=== PATIENT | female | born 1995 | race American Indian/Alaskan Native ===

== ENCOUNTER 2016-05-31 10:36 | Emergency (ER) | payer SELFPAY ==
--- NOTE | 2016-05-31 14:20 | Emergency Department Report ---
ED Female HPI - General Chief complaint: Urogenital-Female Stated complaint: 14 WKS ,CRAMING,VAGINAL D/C Time Seen by Provider: 05/31/16 13:40 Source: patient Mode of arrival: Ambulatory Limitations: No Limitations - History of Present Illness Initial comments: 21-year-old female 1 miscarriage currently approximately 14 weeks by LMP and ultrasound presents with complaint of one week of vaginal discharge and mild vaginal itching. Patient states that she had one episode of cramping earlier this week but denies any vaginal bleeding and no current cramping. 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 States that she has had yellowish whitish greenish discharge from vagina within the last week. States that it is slightly itchy. Denies any vaginal bleeding whatsoever no nausea no vomiting no fever no chills. Complains of mild dysuria and no increased urinary frequency. MD Complaint: vaginal discharge Onset/Timin -: week(s) Location: labia Severity: mild Severity scale (0 -10): 5 Consistency: constant Improves with: none Worsens with: none Are you Now?: Yes - Related Data Sexually active: Yes : 2 Para: 0 Previous Rx's Medication Instructions Recorded Last Taken Type Clotrimazole [Cckt-Czxbliwq-4] 1 applicator [facility] #1 cream.appl 05/31/16 Unknown Rx Nitrofurantoin [place]/M-Cryst 100 mg PO Q12HR #14 capsule 05/31/16 Unknown Rx [Macrobid CAP] metroNIDAZOLE [Flagyl TAB] 500 mg PO Q12HR #14 tab 05/31/16 Unknown Rx Allergies Allergy/AdvReac Type Severity Reaction Status Date / Time No Known Allergies Allergy Unverified 05/31/16 11:06 ED Review of Systems ROS: Stated complaint: 14 WKS ,CRAMING,VAGINAL D/C Other details as noted in HPI Constitutional: denies: chills, fever Eyes: denies: eye pain, eye discharge, vision change ENT: denies: ear pain, throat pain Respiratory: denies: cough, shortness of breath, wheezing Cardiovascular: denies: chest pain, palpitations Endocrine: no symptoms reported Gastrointestinal: denies: abdominal pain, nausea, diarrhea Genitourinary: dysuria, discharge. denies: urgency Musculoskeletal: denies: back pain, joint swelling, arthralgia Skin: denies: rash, lesions Neurological: denies: headache, weakness, paresthesias Psychiatric: denies: anxiety, depression Hematological/Lymphatic: denies: easy bleeding, easy bruising ED Past Medical Hx - Past Medical History Previous Medical History?: Yes - Surgical History Past Surgical History?: No - Social History Smoking Status: Never Smoker Substance Use Type: Non Opiate Pain - Medications Home Medications: Home Medications Medication Instructions Recorded Confirmed Last Taken Type Clotrimazole [Ulxk-Qcshcucf-4] 1 applicator [facility] #1 cream.appl 05/31/16 Unknown Rx Nitrofurantoin [place]/M-Cryst 100 mg PO Q12HR #14 capsule 05/31/16 Unknown Rx [Macrobid CAP] metroNIDAZOLE [Flagyl TAB] 500 mg PO Q12HR #14 tab 05/31/16 Unknown Rx ED Physical Exam - General Limitations: No Limitations General appearance: alert, in no apparent distress - Head Head exam: Present: atraumatic, normocephalic - Eye Eye exam: Present: normal appearance, PERRL, EOMI - ENT ENT exam: Present: mucous membranes moist - Neck Neck exam: Present: normal inspection - Respiratory Respiratory exam: Present: normal lung sounds bilaterally. Absent: respiratory distress - Cardiovascular Cardiovascular Exam: Present: regular rate, normal rhythm. Absent: systolic murmur, diastolic murmur, rubs, gallop - GI/Abdominal GI/Abdominal exam: Present: soft, normal bowel sounds - Rectal Rectal exam: Present: normal inspection - External exam: Present: normal external exam Speculum exam: Present: vaginal discharge (yellowish whitish vaginal discharge) Bi-manual exam: Present: normal bi-manual exam - Extremities Exam Extremities exam: Present: normal inspection, full ROM - Back Exam Back exam: Present: normal inspection - Neurological Exam Neurological exam: Present: alert, oriented X3, CN II-XII intact, normal gait - Psychiatric Psychiatric exam: Present: normal affect, normal mood - Skin Skin exam: Present: warm, dry, intact, normal color. Absent: rash ED Course Vital Signs 05/31/16 11:06 Temperature 99.3 F Pulse Rate 64 Respiratory 15 Rate Blood Pressure 118/75 O2 Sat by Pulse 100 Oximetry ED Medical Decision Making - Medical Decision Making A/P: Bacterial vaginosis, yeast infection vaginal candidiasis; UTI 1-Macrobid twice a day 7 days, urine culture sent 2-Flagyl 500 mg twice a day 7 days, vaginal clotrimazole 3-we'll give patient follow up with [facility] REPORT DEVELOPER Critical care attestation.: If time is entered above; I have spent that time in minutes in the direct care of this critically ill patient, excluding procedure time. ED Disposition Clinical Impression: Vaginal candidiasis, Bacterial vaginosis UTI (urinary tract infection) Qualifiers: Urinary tract infection type: urethritis Qualified Code(s): N34.2 - Other urethritis Disposition: DISCHARGED TO HOME OR SELFCARE Is pt being admited?: No Does the pt Need Aspirin: No Condition: Stable Instructions: Bacterial Vaginosis (ED), Urinary Tract Infection in Women (ED), Vulvovaginal Candidiasis (ED) Prescriptions: Clotrimazole [Grwm-Cvwulidv-4] 1 applicator [facility] Q[facility] #1 cream.appl metroNIDAZOLE [Flagyl TAB] 500 mg PO Q12HR #14 tab Nitrofurantoin [place]/M-Cryst [Macrobid CAP] 100 mg PO Q12HR #14 capsule Referrals: LARRY MACK MD [Staff Physician] - 3-5 Days [facility] [Provider Group] - 3-5 Days Forms: STI Treatment and Prevention, Work/School Release Form(ED) Time of Disposition: 15:15
[2016-05-31 14:41] LABS: Bacteria,Urine 2+ /HPF (Negative); Bilirubin,Urine NEG (Negative); Blood,Urine SM (Negative); Ketones,Urine 20 mg/dL (Negative); Leukocyte Esterase,Urine LG (Negative); Mucus,Urine 3+ /HPF; Nitrite,Urine NEG (Negative); Urobilinogen,Urine < 2.0 mg/dL (<2.0)
[2016-05-31] MEDS ORDERED: ZITHROMAX PO ONE (15:19)
[2016-05-31] MEDS ORDERED: XYLOCAINE 1% MPF 5 mL INFILTRATI ONE (15:19)
[2016-05-31] MEDS ORDERED: ROCEPHIN IM ONE (15:19)
[2016-05-31 15:48] VITALS: BP 116/74
== END 2016-05-31 15:16 | disposition home or self-care (01) ==
LOC: ED 10:36
DX: O23.42 Unspecified infection of urinary tract in pregnancy, second trimester (principal); O23.592 Infection of other part of genital tract in pregnancy, second trimester; N76.0 Acute vaginitis; O98.812 Other maternal infectious and parasitic diseases complicating pregnancy, second trimester; B37.3 Candidiasis of vulva and vagina; Z3A.14 14 weeks gestation of pregnancy
CPT/HCPCS: 81001; 81025; 87086; 87210; 87591; 96372; 99284; J0696

== ENCOUNTER 2016-06-23 18:05 | Emergency (ER) | payer SELFPAY ==
[2016-06-23 18:53] VITALS: BP 110/72
[2016-06-23 19:22] LABS: Basophils % (Auto) 0.3 % (0.0-1.8); Eosinophils % (Auto) 1.3 % (0.0-4.3); Hematocrit 36.6 % (30.3-42.9); Hemoglobin 12.1 gm/dl (10.1-14.3); Mean Corpuscular HGB Conc 33 % (30-34); Mean Corpuscular Volume 78 fl (79-97); Platelet Count 198 K/mm3 (140-440); Red Blood Count 4.69 M/mm3 (3.65-5.03); Red Cell Distribution Width 16.1 % (13.2-15.2); White Blood Count 8.8 K/mm3 (4.5-11.0)
[2016-06-23 19:40] LABS: Mean Corpuscular Hemoglobin 26 pg (28-32)
[2016-06-23 20:01] LABS: Anion Gap 17 mmol/L; Blood Urea Nitrogen 8 mg/dL (7-17); Calcium 9.1 mg/dL (8.4-10.2); Carbon Dioxide 23 mmol/L (22-30); Chloride 100.4 mmol/L (98-107); Glucose 86 mg/dL (65-100); Potassium 4.2 mmol/L (3.6-5.0); Sodium 136 mmol/L (137-145)
[2016-06-23 21:11] LABS: Bilirubin,Urine NEG (Negative); Blood,Urine NEG (Negative); Ketones,Urine NEG (Negative); Leukocyte Esterase,Urine SM (Negative); Mucus,Urine 2+ /HPF; Nitrite,Urine NEG (Negative)
== END 2016-06-23 21:30 | disposition left against medical advice (07) ==
LOC: ED 18:05
DX: O26.892 Other specified pregnancy related conditions, second trimester (principal); R42 Dizziness and giddiness; Z3A.16 16 weeks gestation of pregnancy; Z53.21 Procedure and treatment not carried out due to patient leaving prior to being seen by health care provider
CPT/HCPCS: 36415; 80048; 81001; 85025

== ENCOUNTER 2016-11-10 23:46 | Outpatient (CLI) | payer SELFPAY ==
[2016-11-11 00:04] VITALS: BP 117/74
[2016-11-11] MEDS ORDERED: VISTARIL PO ONE (00:32)
== END 2016-11-11 01:16 | disposition home or self-care (01) ==
LOC: TRG 23:46
PROVIDERS: ATTEND Obstetrics & Gynecology
DX: O47.1 False labor at or after 37 completed weeks of gestation (principal); Z3A.38 38 weeks gestation of pregnancy
CPT/HCPCS: Q0177

== ENCOUNTER 2016-11-11 10:23 | Inpatient (IN) | payer OTHER ==
[2016-11-11] MEDS ORDERED: MINERAL OIL PO PRN (11:18)
[2016-11-11] MEDS ORDERED: BRETHINE SUB-Q PRN (11:18)
[2016-11-11] MEDS ORDERED: PHENERGAN PO PRN ×2 (11:18→13:34)
[2016-11-11] MEDS ORDERED: SUBLIMAZE IV PRN (11:18)
[2016-11-11] MEDS ORDERED: XYLOCAINE 2% INFILTRATI ONE (11:18)
[2016-11-11] MEDS ORDERED: ePHEDrine SULFATE IV PRN (11:18)
[2016-11-11] MEDS ORDERED: ZOFRAN IV PRN ×2 (11:18→13:34)
[2016-11-11] MEDS ORDERED: STADOL IV PRN (11:18)
[2016-11-11] MEDS ORDERED: BRETHINE IVP PRN (11:18)
[2016-11-11] MEDS ORDERED: POLYCILLIN/NS 2 GM/100 ML 2 GM/100 ML BAG IV ONE (11:18)
[2016-11-11] MEDS ORDERED: NARCAN 0.4 MG/1 ML IV PRN (11:18)
--- NOTE | 2016-11-11 11:25 | History and Physical Report ---
History of Present Illness Date of examination: 11/11/16 Date of admission: 11/11/16 10:40 Chief complaint: labor History of present illness: Pt is a 21yo BF EDC 11/21/16; EGA 38 4/7 weeks presents to L&D complaining of RUC's q 3-4 mins. She received care at [facility], however records are not available. Pt states course has been unremarkable. labs are available but GBS is unknown. Past History Past Medical History: no pertinent history Past Surgical History: no surgical history Social history: no significant social history, single - Obstetrical History Expected Date of Delivery: 11/21/16 Actual Gestation: 38 Week(s) 4 Day(s) Medications and Allergies Allergies Allergy/AdvReac Type Severity Reaction Status Date / Time No Known Allergies Allergy Verified 06/23/16 18:53 Home Medications Medication Instructions Recorded Confirmed Last Taken Type Exh229/FA/Omega3/Dha/Fish Oil 1 each PO QDAY 06/23/16 11/11/16 11/09/16 17:00 History [ Gummies] Review of Systems All systems: negative - Vital Signs Vital signs: Vital Signs Pulse Pulse Ox 60 99 11/11/16 10:29 11/11/16 10:29 Temp Pulse Resp BP Pulse Ox 108 H 99 11/11/16 10:36 11/11/16 10:36 - Physical Exam Breasts: Positive: deferred Cardiovascular: Regular rate Lungs: Positive: Clear to auscultation Abdomen: Positive: normal appearance Genitourinary (Female): Positive: normal external genitalia Vagina: Positive: normal moisture Uterus: Positive: enlarged Extremities: Positive: normal - Obstetrical FHR: category 1 Uterine Contraction Monitor Mode: External Cervical Dilatation: 5.5 Cervical Effacement Percentage: 90 station: -1 Uterine Contraction Pattern: Regular Uterine Tone Measurement Phase: Contraction Uterine Contraction Intensity: Moderate Results Result Diagrams: 11/11/16 11:17 All other labs normal. Assessment and Plan - Patient Problems (1) 38 weeks gestation of Onset Date: 11/11/16 Current Visit: Yes Status: Acute Plan to address problem: A: IUP @ 38 4/7 weeks in labor Unknown GBS P: Admit to L&D for expectant vaginal delivery IV Ampicillin Obtain Medical records (2) Active labor at term Onset Date: 11/11/16 Current Visit: Yes Status: Acute
[2016-11-11 11:41] LABS: Hematocrit 32.6 % (30.3-42.9); Mean Corpuscular HGB Conc 31 % (30-34); Platelet Count 229 K/mm3 (140-440); Red Blood Count 4.89 M/mm3 (3.65-5.03); Red Cell Distribution Width 17.3 % (13.2-15.2)
[2016-11-11 11:43] LABS: Mean Corpuscular Hemoglobin 20 pg (28-32); Mean Corpuscular Volume 67 fl (79-97)
[2016-11-11] MEDS ORDERED: PITOCin/NS 30 UNIT/500ML 30 UNITS/500 ML BAG IV SCH ×2 (12:00)
[2016-11-11] MEDS ORDERED: LACTATED RINGERS 1,000 ML IV SCH (12:00)
[2016-11-11] MEDS ORDERED: PITOCin/NS 20 UNIT/1000ML DRIP 20 UNITS/1,000 ML BAG IV SCH ×2 (12:00→14:00)
--- NOTE | 2016-11-11 13:33 | Procedure Note ---
OB Delivery Note - Delivery Date of Delivery: 11/11/16 Surgeon: SELENA MACK Estimated blood loss: 100cc - Vaginal Delivery presentation: vertex Delivery position: OA Intrapartum events: precipitous labor- <3hr Delivery induction: none Delivery augmentation: rupture of membranes Delivery monitor: external FHT, external uterine Route of delivery: Delivery placenta: spontaneous Delivery cord: 3 umbilical vessels Episiotomy: none Delivery laceration: none Anesthesia: none Delivery comments: delivered OA and placed on Mom's chest for [id number] bonding and delayed cord clamping - A at 1 minute: 9 at 5 minutes: 9 Infant Gender: Male (3198gms)
[2016-11-11] MEDS ORDERED: TUCKS PAD TP PRN (13:34)
[2016-11-11] MEDS ORDERED: TYLENOL PO PRN (13:34)
[2016-11-11] MEDS ORDERED: DULCOLAX PR PRN (13:34)
[2016-11-11] MEDS ORDERED: BENADRYL PO PRN (13:34)
[2016-11-11] MEDS ORDERED: PHENERGAN PR PRN (13:34)
[2016-11-11] MEDS ORDERED: LANSINOH TP PRN (13:34)
[2016-11-11] MEDS ORDERED: NORCO 5/325 PO PRN (13:34)
[2016-11-11] MEDS ORDERED: MILK OF MAGNESIA PO PRN (13:34)
[2016-11-11] MEDS ORDERED: SODIUM CHLORIDE FLUSH SYRINGE 10 ML IV NR (14:00)
[2016-11-11] MEDS: MOTRIN PO SCH ×2 (14:55→21:02)
[2016-11-11] MEDS ORDERED: POLYCILLIN/NS 1 GM/50 ML 1 GM/50 ML BAG IV SCH (15:21)
[2016-11-11] MEDS ORDERED: FLAGYL PO ONE (17:00)
[2016-11-11] MEDS: FEOSOL PO SCH (21:02)
[2016-11-11] MEDS: COLACE PO SCH (21:02)
[2016-11-12 01:10] LABS: Hemoglobin 9.2 gm/dl (10.1-14.3)
[2016-11-12] MEDS: MOTRIN PO SCH ×4 (05:08→23:25)
--- NOTE | 2016-11-12 08:37 | Progress Note ---
Assessment and Plan PPD# 1 s/p -Doing well P: -Continue routine care -Anticipate discharge in 24-48 hours - Patient Problems (1) (normal spontaneous vaginal delivery) Current Visit: Yes Status: Acute Subjective - Subjective Date of service: 11/12/16 Principal diagnosis: PPD# 2 Interval history: Patient seen and examined, stable doing well no issues Patient reports: appetite normal, voiding normally, pain well controlled, flatus , ambulating normally, no dizzy ambulation, no nauseated Cache: doing well Objective - Vital Signs Latest vital signs: Vital Signs Temp Pulse Resp BP BP Pulse Ox 11/12/16 00:56 98.6 F 74 18 113/58 11/11/16 20:15 99.2 F 75 20 115/69 11/11/16 15:30 98.6 F 65 20 113/56 11/11/16 14:53 62 129/66 11/11/16 14:50 98.3 F 16 11/11/16 14:38 65 123/61 11/11/16 14:23 67 126/58 11/11/16 14:08 68 142/77 11/11/16 13:54 80 141/67 11/11/16 13:38 68 125/79 11/11/16 13:35 98.5 F 16 11/11/16 13:24 69 146/87 11/11/16 11:50 98.4 F 20 11/11/16 11:35 68 119/70 11/11/16 10:36 108 H 99 11/11/16 10:34 59 L 99 11/11/16 10:29 64 99 Intake and Output 11/11/16 11/12/16 11/12/16 22:59 06:59 14:59 Intake Total 120 360 Output Total 1100 600 Balance -980 -240 Intake: Oral 120 Intake, Free Water 360 Output: Urine 1100 600 Void 1100 600 Other: Total, Intake Amount 120 Total, Output Amount 800 600 - Exam Abdomen: Present: normal appearance, soft. Absent: distention, tenderness, guarding, rigidity Uterus: Present: fundal height below umbilicus. Absent: tenderness Extremities: Present: normal - Labs Labs: Abnormal lab results 11/11/16 11/12/16 Range/Units 11:17 00:54 WBC 13.0 H (4.5-11.0) K/mm3 Hgb 10.0 L 9.2 L (10.1-14.3) gm/dl Hct 29.0 L (30.3-42.9) % MCV 67 L (79-97) fl MCH 20 L (28-32) pg RDW 17.3 H (13.2-15.2) %
--- NOTE | 2016-11-12 08:38 | Discharge Summary ---
Providers - Providers Date of Admission: 11/11/16 10:40 Date of discharge: 11/13/16 Attending physician: SELENA MACK Primary care physician: SELENA MACK Hospitalization Reason for admission: active labor, IUP at term Delivery: Episiotomy: none Laceration: none Other procedures: none complications: none Discharge diagnosis: IUP at term delivered [place] baby: male Hospital course: Uncomplicated hospital course Condition at discharge: Good Disposition: DC-01 TO HOME OR SELFCARE - Discharge Diagnoses (1) (normal spontaneous vaginal delivery) Status: Acute Plan - Discharge Medications Prescriptions: Ferrous Sulfate [Feosol 325 MG tab] 325 mg PO BID #60 tablet Ibuprofen [Motrin] 800 mg PO Q8HR PRN #30 tablet PRN Reason: Pain Vit W-Ca,Fe,FA(<1 mg) [ Vitamins] 1 each PO DAILY #30 tablet - Provider Discharge Summary Activity: no sex for 6 weeks, no heavy lifting 4 weeks, no strenuous exercise Diet: routine Additional instructions: [] Smoking cessation referral if applicable(refer to patient education folder for contact #) [] Refer to [facility]'s [facility] Booklet Call your doctor immediately for: * Fever > 100.5 * Heavy vaginal bleeding ( >1 pad per hour) * Severe persistent headache * Shortness of breath * Reddened, hot, painful area to leg or breast * Drainage or odor from incision. * Keep incision clean and dry at all times and follow doctor's instructions regarding bathing/showering - Follow up plan Follow up: SELENA MACK MD [Primary Care Provider] - 6 Weeks
[2016-11-12] MEDS: FEOSOL PO SCH ×2 (12:26→22:30)
[2016-11-12] MEDS ORDERED: BOOSTRIX IM ONE (13:34)
[2016-11-12] MEDS ORDERED: M-M-R II VACCINE SUB-Q ONE (13:34)
[2016-11-12] MEDS: PRENATAL VITAMIN PO SCH (18:14)
[2016-11-12] MEDS: COLACE PO SCH (22:30)
[2016-11-13] MEDS: MOTRIN PO SCH ×2 (05:07→12:44)
[2016-11-13 09:00] VITALS: BP 112/72
[2016-11-13] MEDS: PRENATAL VITAMIN PO SCH (12:43)
[2016-11-13] MEDS: COLACE PO SCH (12:43)
[2016-11-13] MEDS: FEOSOL PO SCH (12:44)
== END 2016-11-13 14:00 | disposition home or self-care (01) | DRG 775 ==
LOC: TRG 10:23 → LD 10:40 → OB 15:16
PROVIDERS: ADMIT Obstetrics & Gynecology; ATTEND Obstetrics & Gynecology
PROC: 10E0XZZ Delivery of Products of Conception, External Approach (ICD-10-PCS; principal; 2016-11-11)
PROC: 3E0234Z Introduction of Serum, Toxoid and Vaccine into Muscle, Percutaneous Approach (ICD-10-PCS; 2016-11-11)
DX: O62.3 Precipitate labor (principal); Z23 Encounter for immunization
CPT/HCPCS: 36415; 85014; 85018; 85027; 86592; 86850; 86900; 86901; 99211; A6250; G0463; J0290; J2590; J3010; J7120